=== PATIENT | female | born 1985 | race Caucasian/White ===

== ENCOUNTER 2022-02-15 16:50 | Emergency (ER) | payer BC, SELFPAY ==
[2022-02-15 17:40] VITALS: BP 139/82; PULSE 71; RESP 16; TEMP 36.4; O2SAT 98
--- NOTE | 2022-02-15 18:54 | ED.GENADULT ---
HPI - General Adult General Chief complaint: Upper Respiratory Infection Stated complaint: Cough,Headache,Fatigue,Shortness of Breath,Congest History of Present Illness HPI narrative: 36 y/o female. PMHx MDD, PCOS. Presents to [facility] clinic today with acute complaints of cough, congestion, ARZOLA, chills. Manifestations ongoing > 1 wk. No ARZOLA, dizziness, focal weakness. No fevers, neck pain. No chest pain, palpitations, hemoptysis. Mild and intermittent dyspnea. Denies GI upset, N/V/D. Related Data Allergies Allergy/AdvReac Type Severity Reaction Status Date / Time morphine Allergy Mild ITCHING Verified 02/15/22 17:42 acetaminophen Allergy Unknown ITCHING Verified 02/15/22 17:42 propoxyphene Allergy Unknown Hives Verified 02/15/22 17:42 Review of Systems Review of Systems: All systems reviewed & are unremarkable except as noted in HPI and below: Constitutional: ARZOLA. HENT: Congestion. Resp: Cough. 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 HEAD: Normocephalic, atraumatic. EYES: PERRLA, conjunctivae clear, and EOMI. ENT: Mucous membranes moist. Positive PND. Pharyngeal erythema, without swelling or exudative changes, Uvula midline. Palate soft. NECK: Supple. No lymphadenopathy CHEST: Upper airway Rhonchi, cleared w/cough. No respiratory distress. HEART: Regular rate and rhythm. SKIN: Warm, dry, intact NEURO:? Alert and oriented x3. PSYCH: Normal mood and affect Course Course Level of Care: Express Care Visit Vital Signs Vital signs: Vital Signs Temperature 36.4 C 02/15/22 17:40 Pulse Rate 71 02/15/22 17:40 Respiratory Rate 16 02/15/22 17:40 Blood Pressure 139/82 02/15/22 17:40 Pulse Oximetry 98 02/15/22 17:40 Oxygen Delivery Room Air 02/15/22 17:40 Temperature 36.4 C 02/15/22 17:40 Pulse Rate 71 02/15/22 17:40 Respiratory Rate 16 02/15/22 17:40 Blood Pressure 139/82 02/15/22 17:40 Pulse Oximetry 98 02/15/22 17:40 Oxygen Delivery Room Air 02/15/22 17:40 Medical Decision Making Differential Diagnosis Differential Diagnosis: Differential Diagnosis: Consideration of the following conditions may be warranted for the presenting problem, they are not final diagnoses: upper respiratory infection, otitis media, sinusitis, RSV viral infection, bronchitis, pharyngitis, Streptococcal sore throat, COVID-19, and other. Vital Signs Vital Signs: Vital Signs Temperature 36.4 C 02/15/22 17:40 Pulse Rate 71 02/15/22 17:40 Respiratory Rate 16 02/15/22 17:40 Blood Pressure 139/82 02/15/22 17:40 Pulse Oximetry 98 02/15/22 17:40 Oxygen Delivery Room Air 02/15/22 17:40 Temperature 36.4 C 02/15/22 17:40 Pulse Rate 71 02/15/22 17:40 Respiratory Rate 16 02/15/22 17:40 Blood Pressure 139/82 02/15/22 17:40 Pulse Oximetry 98 02/15/22 17:40 Oxygen Delivery Room Air 02/15/22 17:40 Discharge Plan Discharge Clinical Impression: Upper respiratory infection, Bronchitis Patient Disposition: Home,
== END 2022-02-15 19:00 | disposition home or self-care (01) ==
LOC: EXPTROY 16:54
PROVIDERS: Emergency Provider Nurse Practitioner Adult Health; PCP Family Medicine
DX: J40 Bronchitis, not specified as acute or chronic (principal); F17.210 Nicotine dependence, cigarettes, uncomplicated; Z20.822 Contact with and (suspected) exposure to COVID-19
CPT/HCPCS: 87426; 99213; C9803; G0463